=== PATIENT | female | born 1995 | race Caucasian/White ===

== ENCOUNTER 2017-08-16 16:17 | Emergency (ER) | payer OTHER ==
[~2017-08-16 16:17] MED LIST: ALB18R INH; ALB6.7R INH; BENZ100C4 PO; CEFU500T10 PO; HYDR-4309 PO; PRED-1 PO; PROM-110 PO; mirena
[2017-08-16] MEDS ORDERED: ORPHENADRINE 60MG/2ML INJ IM ONE (16:35)
[2017-08-16] MEDS ORDERED: KETOROLAC 15 MG/ML VIAL IM ONE ×2 (16:35→16:45)
--- NOTE | 2017-08-16 16:36 | ER Report ---
History and Physical Time Seen By MD: 16:20 Hx. of Stated Complaint: WOKE UP WITH BACK PAIN THIS MORNING. COULDN'T GET OUT OF BED. HAS HISTORY OF SCOLIOSIS HPI/ROS CHIEF COMPLAINT: Back pain HISTORY OF PRESENT ILLNESS: Patient is a 22-year-old female who presents the ED with complaint of back pain. She states that she has a history of chronic back pain due to scoliosis. She states that she cannot afford to see a pain specialist or chiropractor. She states that she has had to go to the emergency room before for her back pain. She denies any acute injury. She states that it just flares up sometimes. She states it is more the midthoracic back region. She denies any urinary bowel incontinence. She denies any pain radiating into her legs. She denies any numbness or tingling radiating into her legs. She has applied some THC/CBD ointment to her back with mild relief. She states that it feels like it is spasming and tightening up. REVIEW OF SYSTEMS: Constitutional: No fever, no chills. Cardiovascular: No chest pain, no palpitations. Respiratory: No cough, no shortness of breath. Gastrointestinal: No abdominal pain, no vomiting. Genitourinary: No hematuria. Musculoskeletal: The history of present illness. Skin: No rashes. Neurological: No headache. Allergies: Coded Allergies: crab (Verified Allergy, Severe, anaphalxsis, 08/16/17) lactose (Verified Adverse Reaction, Unknown, 08/16/17) Home Meds Active Scripts Baclofen (BACLOFEN) 10 Mg Tablet, 10 MG PO TID Y for prn, #15 TAB Prov:HAMIDA AC PA-C 08/16/17 Diclofenac Sodium (DICLOFENAC SODIUM) 50 Mg Tablet.dr, 50 MG PO TID Y for prn, # 15 TAB Prov:HAMIDA AC PA-C 08/16/17 Reported Medications Albuterol Sulfate (PROVENTIL HFA) 6.7 Gm Inh, 2 PUFF INH Q4-6H, INH 05/13/16 Discontinued Reported Medications [mirena] No Conflict Check 02/07/16 Discontinued Scripts Prednisone 10 Mg Tab (PREDNISONE 10 MG TAB) 10 Mg Tablet, 10 MG PO QDAY for reduce lung inflammation, #9 TAB 2 by mouth daily 3 days then 1 by mouth daily 3 days Prov:BONNIE DIAZ DO 05/13/16 Promethazine Hcl (PROMETHAZINE HCL) 25 Mg Tablet, 25 MG PO Q4H Y for NAUSEA/ VOMITING, #12 TAB Prov:BONNIE DIAZ DO 05/13/16 Hydrocodone Bit/Acetaminophen (NORCO 5-325 TABLET) 1 Each Tablet, 1 EACH PO Q4H Y for pain or cough suppression, #12 TAB Prov:BONNIE DIAZ DO 05/13/16 Cefuroxime Axetil (CEFUROXIME) 500 Mg Tablet, 500 MG PO BID for INFECTION, #14 TAB Prov:BONNIE DIAZ DO 05/13/16 Reviewed Nurses Notes: Yes Old Medical Records Reviewed: Yes Hx Substance Use Disorder: No Constitutional Vital Sign - Last 24 Hours 08/16/17 08/16/17 16:21 16:48 Temp 98.6 Pulse 110 101 Resp 18 18 B/P (MAP) 132/88 118/79 (92) Pulse Ox 96 97 O2 Delivery Room Air Room Air Physical Exam General Appearance: The patient is alert, has no immediate need for airway protection and no signs of toxicity. It appears to be in some moderate distress. Eyes: Pupils equal and round no pallor or injection. ENT, Mouth: Mucous membranes are moist. Respiratory: There are no retractions, lungs are clear to auscultation. Cardiovascular: Slightly tachycardic and regular rhythm. Gastrointestinal: Abdomen is soft and non tender, no masses, bowel sounds normal. Neurological: Cranial nerves II-12 intact. Skin: Warm and dry, no rashes. Musculoskeletal: Neck is supple non tender. Extremities are nontender, nonswollen and have full range of motion. There is pain with palpation of bilateral paravertebral thoracic and lumbar areas. Full range of motion with some pain. Negative straight-leg raise test bilaterally. Patellar reflexes are 2+ bilaterally. DIFFERENTIAL DIAGNOSIS: After history and physical exam differential diagnosis was considered for back pain including but not limited to muscular pain, herniated disc, spine fracture, intra-abdominal causes and urinary tract infection. Medical Decision Making ED Course/Re-evaluation ED Course Patient will be given 60 mg IM Norflex and 30 mg IM ketorolac. Decision to Disposition Date: Aug 16, 2017 Decision to Disposition Time: 16:37 Depart Departure Latest Vital Signs Vital Signs Date Time Temp Pulse Resp B/P (MAP) Pulse Ox O2 Delivery O2 Flow Rate FiO2 08/16/17 16:48 101 18 118/79 (92) 97 Room Air 08/16/17 16:21 98.6 Impression: Primary Impression: Chronic back pain Condition: Improved Disposition: HOME OR SELF-CARE New Scripts Baclofen (BACLOFEN) 10 Mg Tablet 10 MG PO TID Y for prn, #15 TAB Prov: HAMIDA AC PA-C 08/16/17 Diclofenac Sodium (DICLOFENAC SODIUM) 50 Mg Tablet.dr 50 MG PO TID Y for prn, #15 TAB Prov: HAMIDA AC PA-C 08/16/17 Patient Instructions: Chronic Back Pain (ED) Additional Instructions: Rest, ice, heat. Follow-up with primary care provider in 2-3 days. If having any worsening concerning symptoms may return to the emergency department. Problem Qualifiers Primary Impression: Chronic back pain Back pain location: thoracic back pain Back pain laterality: bilateral Qualified Codes: M54.6 - Pain in thoracic spine; G89.29 - Other chronic pain HAMIDA AC PA-C Aug 16, 2017 16:36
[2017-08-16] MEDS ORDERED: DICL-192 PO (16:39)
[2017-08-16] MEDS ORDERED: BACL-1 PO (16:39)
[2017-08-16] MEDS ORDERED: KETOROLAC 30 MG/ML VIAL IM ONE ×2 (16:40→16:45)
[2017-08-16 16:48] VITALS: BP 118/79
== END 2017-08-16 16:52 | disposition home or self-care (01) ==
LOC: ER 16:32
DX: M54.6 Pain in thoracic spine (principal); G89.29 Other chronic pain
CPT/HCPCS: 96372; 99283; J2360

== ENCOUNTER 2017-08-19 17:22 | Emergency (ER) | payer OTHER ==
[~2017-08-19 17:22] MED LIST changes: +BACL-1 PO; +DICL-192 PO
[2017-08-19 17:25] VITALS: BP 113/81
[2017-08-19] MEDS ORDERED: mirena (17:29)
--- NOTE | 2017-08-19 17:33 | ER Report ---
History and Physical Time Seen By MD: 17:33 Hx. of Stated Complaint: pt reports bug bite to left pinky finger 30 min travel pta, known bug HPI/ROS 22-year-old female who presents to the emergency department after being stung by an unknown insect on her left 5th digit approximately 30-45 minutes prior to arrival. She became lightheaded shortly after the incident, and was worried that she was allergic to bees and so therefore came to the emergency department. She considered taking a family member's EpiPen at home but did not. She denies any shortness of breath, no wheezing, no rash, no swelling, no nausea vomiting or diarrhea. She complains of pain and mild swelling on her left small finger. Allergies: Coded Allergies: crab (Verified Allergy, Severe, anaphalxsis, 08/19/17) lactose (Verified Adverse Reaction, Unknown, 08/19/17) Home Meds Active Scripts Baclofen (BACLOFEN) 10 Mg Tablet, 10 MG PO TID Y for prn, #15 TAB Prov:HAMIDA AC PA-C 08/16/17 Diclofenac Sodium (DICLOFENAC SODIUM) 50 Mg Tablet.dr, 50 MG PO TID Y for prn, # 15 TAB Prov:HAMIDA AC PA-C 08/16/17 Reported Medications [mirena] No Conflict Check 08/19/17 Albuterol Sulfate (PROVENTIL HFA) 6.7 Gm Inh, 2 PUFF INH Q4-6H, INH 05/13/16 Discontinued Reported Medications [mirena] No Conflict Check 02/07/16 Discontinued Scripts Prednisone 10 Mg Tab (PREDNISONE 10 MG TAB) 10 Mg Tablet, 10 MG PO QDAY for reduce lung inflammation, #9 TAB 2 by mouth daily 3 days then 1 by mouth daily 3 days Prov:BONNIE DIAZ DO 05/13/16 Promethazine Hcl (PROMETHAZINE HCL) 25 Mg Tablet, 25 MG PO Q4H Y for NAUSEA/ VOMITING, #12 TAB Prov:BONNIE DIAZ DO 05/13/16 Hydrocodone Bit/Acetaminophen (NORCO 5-325 TABLET) 1 Each Tablet, 1 EACH PO Q4H Y for pain or cough suppression, #12 TAB Prov:BONNIE DIAZ DO 05/13/16 Cefuroxime Axetil (CEFUROXIME) 500 Mg Tablet, 500 MG PO BID for INFECTION, #14 TAB Prov:BONNIE DIAZ DO 05/13/16 Reviewed Nurses Notes: Yes Old Medical Records Reviewed: Yes Hx Smoking: Yes Smoking Status: Current: Every Day Smoker Exposure to Second Hand Smoke?: Yes Hx Substance Use Disorder: No Hx Alcohol Use: No Constitutional Vital Sign - Last 24 Hours 08/19/17 17:25 Temp 98.6 Pulse 102 Resp 20 B/P (MAP) 113/81 Pulse Ox 96 O2 Delivery Room Air Physical Exam General Appearance: The patient is alert, has no immediate need for airway protection and no current signs of toxicity. Eyes: Pupils equal and round no injection. Respiratory: Chest is non tender, lungs are clear to auscultation. Cardiac: regular rate and rhythm Skin: Small area of erythema without evidence of stinger in place. scant swelling. n/v in tact, full rom. DIFFERENTIAL DIAGNOSIS: After history and physical exam differential diagnosis was considered for allergic reaction, anaphylaxis, insect bite, infection Medical Decision Making ED Course/Re-evaluation ED Course 22-year-old female with no medical problems presents to the emergency department after being stung by an unknown insect on her left 5th digit. After staying she said she felt lightheaded and was worried she may be allergic to bees. The episode was approximately 45 minutes ago, and she has had no rash, no wheezing, no airway compromise, no nausea vomiting, and has normal vital signs. She did not take anything for the pain with swelling at home. He says she was connected use an EpiPen but decided to come to the emergency department instead. She was given Benadryl for symptomatic relief as well as an ice pack for pain and swelling. I recommended that she continue with this treatment at home. Decision to Disposition Date: Aug 19, 2017 Decision to Disposition Time: 17:42 Depart Departure Latest Vital Signs Vital Signs Date Time Temp Pulse Resp B/P (MAP) Pulse Ox O2 Delivery O2 Flow Rate FiO2 08/19/17 17:25 98.6 102 20 113/81 96 Room Air Impression: Primary Impression: INSECT BITE (NONVENOMOUS) OF LEFT LITTLE FINGER, INIT ENCNTR Condition: Improved Disposition: HOME OR SELF-CARE Patient Instructions: Insect Bite or Sting (ED) NANI GARVIN MD Aug 19, 2017 17:33
[2017-08-19] MEDS ORDERED: diphenhydrAMINE 25 MG CAP PO ONE (17:35)
== END 2017-08-19 17:52 | disposition home or self-care (01) ==
LOC: ER 17:37
DX: S60.362A Insect bite (nonvenomous) of left thumb, initial encounter (principal); W57.XXXA Bitten or stung by nonvenomous insect and other nonvenomous arthropods, initial encounter
CPT/HCPCS: 99283; Q0163

== ENCOUNTER 2017-10-23 09:06 | Emergency (ER) | payer OTHER ==
--- NOTE | 2017-10-23 09:18 | ER Report ---
History and Physical Time Seen By MD: 09:18 Hx. of Stated Complaint: COUGH, CONGESTION FOR 3 DAYS HPI/ROS Otherwise healthy 22-year-old female who smokes cigarettes daily presents to the emergency department with 3 days of a dry cough. No chest pain or shortness of breath. States that her boyfriend also has symptoms of an upper respiratory illness. She has not tried any [id number]-lqz-xndorst medications, because she says that she does not have any money currently. She stopped smoking the past couple days to her symptoms. She has no other complaints. Remainder of the 14 system rev: Yes Allergies: Coded Allergies: crab (Verified Allergy, Severe, anaphalxsis, 10/23/17) lactose (Verified Adverse Reaction, Unknown, 10/23/17) Home Meds Reported Medications [mirena] No Conflict Check 08/19/17 Albuterol Sulfate (PROVENTIL HFA) 6.7 Gm Inh, 2 PUFF INH Q4-6H, INH 05/13/16 Discontinued Scripts Baclofen (BACLOFEN) 10 Mg Tablet, 10 MG PO TID Y for prn, #15 TAB Prov:HAMIDA AC PA-C 08/16/17 Diclofenac Sodium (DICLOFENAC SODIUM) 50 Mg Tablet.dr, 50 MG PO TID Y for prn, # 15 TAB Prov:HAMIDA AC PA-C 08/16/17 Hx Smoking: Yes Smoking Status: Current: Every Day Smoker Exposure to Second Hand Smoke?: Yes Hx Substance Use Disorder: No Hx Alcohol Use: No Constitutional Vital Sign - Last 24 Hours 10/23/17 09:10 Temp 98.8 Pulse 100 Resp 20 B/P (MAP) 113/93 Pulse Ox 96 O2 Delivery Room Air Physical Exam General Appearance: The patient is alert, has no immediate need for airway protection and no current signs of toxicity. Eyes: Pupils equal and round no injection. Respiratory: Chest is non tender, scant diffuse wheezing Cardiac: regular rate and rhythm Gastrointestinal: Abdomen is soft and non tender, no masses, bowel sounds normal. Neck: Neck is supple and non tender. Extremities have full range of motion and are non tender. Skin: No rashes or lesions. DIFFERENTIAL DIAGNOSIS: After history and physical exam differential diagnosis was considered for shortness of breath including but not limited to pulmonary infectious process, COPD, asthma, pulmonary embolus and congestive heart failure. Medical Decision Making Data Points Laboratory Hematology Test 10/23/17 09:18 Urine HCG, Qualitative Negative (NEGATIVE) Chemistry Test 10/23/17 09:18 Urine HCG, Qualitative Negative (NEGATIVE) Urinalysis Test 10/23/17 09:18 Urine HCG, Qualitative Negative (NEGATIVE) EKG/Imaging Imaging X-ray: cxr was obtained. I viewed the images myself on the PACS system. My interpretation of the images is: no infiltrate and no ptx. The radiologist interpretation had no clinically significant variation from this interpretation. ED Course/Re-evaluation ED Course 22-year-old female otherwise healthy also daily smoker presents the emergency department with 3 days of a cough. Chest x-ray shows no evidence of an infiltrate. I do not think this represents a PE. She does have sick contacts. She was given a DuoNeb, steroids, Mucinex, and an inhaler to take home. I talked with her and explained that she has a viral bronchitis. I suggested that she quit smoking altogether. I am discharging her with an albuterol MDI and suggested that she continue to take Mucinex for symptomatic relief. Decision to Disposition Date: Oct 23, 2017 Decision to Disposition Time: 11:03 Depart Departure Latest Vital Signs Vital Signs Date Time Temp Pulse Resp B/P (MAP) Pulse Ox O2 Delivery O2 Flow Rate FiO2 10/23/17 09:10 98.8 100 20 113/93 96 Room Air Impression: Primary Impression: Bronchitis Condition: Improved Disposition: HOME OR SELF-CARE Patient Instructions: Acute Bronchitis (ED) NANI GARVIN MD Oct 23, 2017 09:18
--- NOTE | 2017-10-23 10:41 | RADIOLOGY IMAGING REPORT ---
FACILITY: [facility] PATIENT NAME: Halle Márquez : 1995 MR: [id number] V: [id number] EXAM DATE: ORDERING PHYSICIAN: NANI GARVIN TECHNOLOGIST: Location: [facility] - [place] Patient: Halle Márquez : 1995 Visit/Account:[id number] Date of Sevice: 10/23/2017 Exam type: CHEST PA AND LAT History: Cough x2 days Comparison: May 13, 2016. Findings: The lungs are free of acute effusions, infiltrates or edema. The cardiac size is normal in size. Th e trachea is in midline. Visualized bones are unremarkable. Metallic nipple piercings project over the lower hemithoraces IMPRESSION: 1. No acute cardiopulmonary process is seen Report Dictated By: Ana Howell MD at 10/23/2017 10:35 AM Report E-Signed By: Ana Howell MD at 10/23/2017 10:36 AM WSN:[email or web address]
[2017-10-23 11:00] VITALS: BP 133/84
[2017-10-23] MEDS ORDERED: DEXAMETHASONE 4 MG TAB PO ONE (11:00)
[2017-10-23] MEDS ORDERED: ALBUTEROL/IPRATROPIUM 3 ML NEB NEB ONE (11:00)
[2017-10-23] MEDS ORDERED: guaiFENesin 600 MG TABCR PO ONE (11:00)
[2017-10-23] MEDS ORDERED: ALBUTEROL 8 GM INHALER INH ONE (11:00)
== END 2017-10-23 11:13 | disposition home or self-care (01) ==
LOC: ER 09:17
DX: J20.8 Acute bronchitis due to other specified organisms (principal)
CPT/HCPCS: 71046; 81025; 94640; 99283; J3535; J7620; J8540

== ENCOUNTER 2017-12-25 02:23 | Emergency (ER) | payer OTHER ==
[~2017-12-25 02:23] MED LIST changes: -HYDR-4309 PO; +HYDR-653 PO
--- NOTE | 2017-12-25 02:27 | ER Report ---
History and Physical Time Seen By MD: 02:27 HPI/ROS CHIEF COMPLAINT: Vomiting, abdominal pain HISTORY OF PRESENT ILLNESS: 22-year-old female presents ambulatory to the ER complaining of left upper quadrant pain for one day. Patient reports she's been sick with viral symptoms for one week with vomiting for 4 days, patient denies diarrhea, she notes some mild dysuria with low-grade intermittent fever but no chills. Patient denies exposure to ill contacts, consumption of bad food. REVIEW OF SYSTEMS: Respiratory: No cough, no dyspnea. Cardiovascular: No chest pain, no palpitations. Gastrointestinal: As above Musculoskeletal: No back pain. Allergies: Coded Allergies: crab (Verified Allergy, Severe, anaphalxsis, 12/25/17) lactose (Verified Adverse Reaction, Unknown, 12/25/17) Home Meds Active Scripts Ondansetron (ZOFRAN ODT) 4 Mg Tab.rapdis, 4 MG PO every 6 hours PRN for NAUSE A/VOMITING, #15 TAB TAKE 1 TABLET BY MOUTH EVERY 12 HOURS Prov:BONNIE DIAZ DO 12/25/17 Reported Medications [mirena] No Conflict Check 08/19/17 Albuterol Sulfate (PROVENTIL HFA) 6.7 Gm Inh, 2 PUFF INH Q4-6H, INH 05/13/16 Reviewed Nurses Notes: Yes Old Medical Records Reviewed: Yes Hx Smoking: Yes Smoking Status: Current: Every Day Smoker Exposure to Second Hand Smoke?: Yes Hx Substance Use Disorder: No Hx Alcohol Use: No Constitutional Vital Sign - Last 24 Hours 12/25/17 12/25/17 12/25/17 12/25/17 02:28 02:31 02:53 03:00 Temp 98.3 Pulse 109 97 Resp 14 B/P (MAP) 146/89 146/89 (108) 135/80 (98) Pulse Ox 95 91 O2 Delivery Room Air 12/25/17 03:05 Pulse 96 Pulse Ox 95 Intake and Output 12/24/17 12/24/17 12/25/17 15:00 23:00 07:00 Intake Total 1000 ml Balance 1000 ml Physical Exam General Appearance: The patient is alert, has no immediate need for airway protection and no current signs of toxicity. Vital signs stable, afebrile, pulse ox normal HEENT: Pupils equal and round no injection. TMs normal, oropharynx with mild erythema, no exudate Respiratory: Chest is non tender, lungs are clear to auscultation. Cardiac: regular rate and rhythm Gastrointestinal: Abdomen is soft. Mild left upper quadrant tenderness, no masses, bowel sounds normal, No splenomegaly Musculoskeletal: Neck: Neck is supple and non tender. No lymphadenopathy Extremities have full range of motion and are non tender. Skin: No rashes or lesions. DIFFERENTIAL DIAGNOSIS: After history and physical exam differential diagnosis was considered for abdominal pain including but not limited to appendicitis, cholecystitis, gastritis and urinary tract infection. Pleurisy, costochondritis, muscle strain, renal stone Medical Decision Making Data Points Result Diagram: 12/25/17 0239 12/25/17 0239 Laboratory Hematology Test 12/25/17 02:28 12/25/17 02:39 Urine Color Yellow Urine Clarity Slightly-cloudy Urine pH 6.0 pH (4.8-9.5) Urine Specific [place] 1.028 Urine Protein Negative mg/dL (NEGATIVE) Urine Glucose (UA) Negative mg/dL (NEGATIVE) Urine Ketones Negative mg/dL (NEGATIVE) Urine Blood Negative (NEGATIVE) Urine Nitrite Negative (NEGATIVE) Urine Bilirubin Negative (NEGATIVE) Urine Urobilinogen 2.0 mg/dL (0.2-1.9) Urine Leukocyte Esterase Negative (NEGATIVE) Urine RBC 7 /HPF (0-2/HPF) Urine WBC 3 /HPF (0-5/HPF) Urine Squamous Epithelial Cells Many /LPF (</=FEW) Urine Bacteria Few /HPF (NONE-FEW) Urine Mucus Few /HPF (NONE-FEW) Red Blood Count 5.06 M/uL (4.17-5.56) Mean Corpuscular Volume 89.7 fL (80.0-96.0) Mean Corpuscular Hemoglobin 31.6 pg (26.0-33.0) Mean Corpuscular Hemoglobin Concent 35.2 g/dL (32.0-36.0) Red Cell Distribution Width 12.5 % (11.5-14.5) Mean Platelet Volume 7.8 fL (7.2-11.1) Neutrophils (%) (Auto) 73.3 % (39.4-72.5) Lymphocytes (%) (Auto) 20.9 % (17.6-49.6) Monocytes (%) (Auto) 5.0 % (4.1-12.4) Eosinophils (%) (Auto) 0.4 % (0.4-6.7) Basophils (%) (Auto) 0.4 % (0.3-1.4) Nucleated RBC Relative Count (auto) 0.0 /100WBC Neutrophils # (Auto) 7.8 K/uL (2.0-7.4) Lymphocytes # (Auto) 2.2 K/uL (1.3-3.6) Monocytes # (Auto) 0.5 K/uL (0.3-1.0) Eosinophils # (Auto) 0.0 K/uL (0.0-0.5) Basophils # (Auto) 0.0 K/uL (0.0-0.1) Nucleated RBC Absolute Count (auto) 0.00 K/uL Sodium Level 141 mmol/L (137-145) Potassium Level 3.8 mmol/L (3.5-5.0) Chloride Level 101 mmol/L (98-107) Carbon Dioxide Level 27 mmol/L (22-31) Blood Urea Nitrogen 14 mg/dl (7-18) Creatinine 0.70 mg/dl (0.52-1.04) Glomerular Filtration Rate Calc > 60.0 Random Glucose 110 mg/dl (75-110) Calcium Level 10.0 mg/dl (8.4-10.2) Total Bilirubin 0.5 mg/dl (0.2-1.3) Aspartate Amino Transf (AST/SGOT) 22 U/L (0-35) Alanine Aminotransferase (ALT/SGPT) 35 U/L (0-56) Alkaline Phosphatase 67 U/L (0-126) Total Protein 7.8 g/dl (6.3-8.2) Albumin 4.6 g/dl (3.5-5.0) Amylase Level 46 U/L (0-110) Lipase 149 U/L (23-300) Human Chorionic Gonadotropin, Qual Negative (NEGATIVE) Chemistry Test 12/25/17 02:28 12/25/17 02:39 Urine Color Yellow Urine Clarity Slightly-cloudy Urine pH 6.0 pH (4.8-9.5) Urine Specific [place] 1.028 Urine Protein Negative mg/dL (NEGATIVE) Urine Glucose (UA) Negative mg/dL (NEGATIVE) Urine Ketones Negative mg/dL (NEGATIVE) Urine Blood Negative (NEGATIVE) Urine Nitrite Negative (NEGATIVE) Urine Bilirubin Negative (NEGATIVE) Urine Urobilinogen 2.0 mg/dL (0.2-1.9) Urine Leukocyte Esterase Negative (NEGATIVE) Urine RBC 7 /HPF (0-2/HPF) Urine WBC 3 /HPF (0-5/HPF) Urine Squamous Epithelial Cells Many /LPF (</=FEW) Urine Bacteria Few /HPF (NONE-FEW) Urine Mucus Few /HPF (NONE-FEW) White Blood Count 10.7 k/uL (4.5-11.0) Red Blood Count 5.06 M/uL (4.17-5.56) Hemoglobin 16.0 g/dL (12.0-16.0) Hematocrit 45.4 % (34.0-47.0) Mean Corpuscular Volume 89.7 fL (80.0-96.0) Mean Corpuscular Hemoglobin 31.6 pg (26.0-33.0) Mean Corpuscular Hemoglobin Concent 35.2 g/dL (32.0-36.0) Red Cell Distribution Width 12.5 % (11.5-14.5) Platelet Count 286 K/uL (150-450) Mean Platelet Volume 7.8 fL (7.2-11.1) Neutrophils (%) (Auto) 73.3 % (39.4-72.5) Lymphocytes (%) (Auto) 20.9 % (17.6-49.6) Monocytes (%) (Auto) 5.0 % (4.1-12.4) Eosinophils (%) (Auto) 0.4 % (0.4-6.7) Basophils (%) (Auto) 0.4 % (0.3-1.4) Nucleated RBC Relative Count (auto) 0.0 /100WBC Neutrophils # (Auto) 7.8 K/uL (2.0-7.4) Lymphocytes # (Auto) 2.2 K/uL (1.3-3.6) Monocytes # (Auto) 0.5 K/uL (0.3-1.0) Eosinophils # (Auto) 0.0 K/uL (0.0-0.5) Basophils # (Auto) 0.0 K/uL (0.0-0.1) Nucleated RBC Absolute Count (auto) 0.00 K/uL Glomerular Filtration Rate Calc > 60.0 Calcium Level 10.0 mg/dl (8.4-10.2) Total Bilirubin 0.5 mg/dl (0.2-1.3) Aspartate Amino Transf (AST/SGOT) 22 U/L (0-35) Alanine Aminotransferase (ALT/SGPT) 35 U/L (0-56) Alkaline Phosphatase 67 U/L (0-126) Total Protein 7.8 g/dl (6.3-8.2) Albumin 4.6 g/dl (3.5-5.0) Amylase Level 46 U/L (0-110) Lipase 149 U/L (23-300) Human Chorionic Gonadotropin, Qual Negative (NEGATIVE) Urinalysis Test 12/25/17 02:28 Urine Color Yellow Urine Clarity Slightly-cloudy Urine pH 6.0 pH (4.8-9.5) Urine Specific [place] 1.028 Urine Protein Negative mg/dL (NEGATIVE) Urine Glucose (UA) Negative mg/dL (NEGATIVE) Urine Ketones Negative mg/dL (NEGATIVE) Urine Blood Negative (NEGATIVE) Urine Nitrite Negative (NEGATIVE) Urine Bilirubin Negative (NEGATIVE) Urine Urobilinogen 2.0 mg/dL (0.2-1.9) Urine Leukocyte Esterase Negative (NEGATIVE) Urine RBC 7 /HPF (0-2/HPF) Urine WBC 3 /HPF (0-5/HPF) Urine Squamous Epithelial Cells Many /LPF (</=FEW) Urine Bacteria Few /HPF (NONE-FEW) Urine Mucus Few /HPF (NONE-FEW) ED Course/Re-evaluation Clinical Indication for ER IV: Hydration, IV Access ED Course Patient admitted to an examination room. H&P is done. The differential diagnoses was considered. On clinical examination. Patient has left upper quadrant pain. She also has some left chest wall tenderness. Diagnostic studies are unremarkable. Patient's medicated with Zofran and Toradol. She feels much better. She be discharged home. His viral syndrome, pleurisy and vomiting. Patient's given prescription for Zofran for nausea and vomiting control. She is advised clear liquid diet for 24 hours. She is advised ibuprofen for pain control. Follow-up with primary care if unimproved in 3-5 days. Decision to Disposition Date: Dec 25, 2017 Decision to Disposition Time: 03:16 Depart Departure Latest Vital Signs Vital Signs Date Time Temp Pulse Resp B/P (MAP) Pulse Ox O2 Delivery O2 Flow Rate FiO2 12/25/17 03:05 96 95 12/25/17 03:00 135/80 (98) 12/25/17 02:28 98.3 14 Room Air Impression: Primary Impression: Left upper quadrant abdominal pain of unknown etiology Additional Impressions: Pleurisy Viral syndrome Condition: Improved Disposition: HOME OR SELF-CARE New Scripts Ondansetron (ZOFRAN ODT) 4 Mg Tab.rapdis 4 MG PO every 6 hours PRN for NAUSEA/VOMITING, #15 TAB TAKE 1 TABLET BY MOUTH EVERY 12 HOURS Prov: BONNIE DIAZ DO 12/25/17 Patient Instructions: Acute Nausea and Vomiting (ED), Pleurisy (ED), Viral Syndrome (ED) Additional Instructions: Take ibuprofen 200 mg 3 tablets 3 times a day Clear liquid diet for 24 hours and advance to Taryn diet, bananas, rice, applesauce and toast Follow-up with primary care if unimproved in 3-5 days. Problem Qualifiers BONNIE DIAZ DO Dec 25, 2017 02:27
[2017-12-25] MEDS ORDERED: NS(*) 0.9% 1000 ML BAG 1,000 ML IV ONE (02:28)
[2017-12-25] MEDS ORDERED: ONDANSETRON 4 MG/2 ML VIAL IVP ONE (02:30)
[2017-12-25 02:49] LABS: PLATELET COUNT, AUTOMATED 286 K/uL (150-450)
[2017-12-25 03:00] VITALS: BP 135/80
[2017-12-25] MEDS ORDERED: KETOROLAC 30 MG/ML VIAL IVP ONE (03:05)
[2017-12-25] MEDS ORDERED: ONDA4TAB PO (03:19)
[2017-12-25] MEDS ORDERED: ONDANSETRON 4 MG ODT TH SL ONE (03:20)
== END 2017-12-25 03:30 | disposition home or self-care (01) ==
LOC: ER 02:43
DX: B34.9 Viral infection, unspecified (principal); R10.12 Left upper quadrant pain; R09.1 Pleurisy
CPT/HCPCS: 81001; 82150; 83690; 84703; 85025; 96361; 96374; 96375; 99284; J1885; J2405; J7030; S0119; 82040; 82247; 82310; 82374; 82435; 82565; 82947; 84075; 84132; 84155; 84295; 84450; 84460; 84520